=== PATIENT | female | born 1980 | race Caucasian/White ===

== ENCOUNTER 2024-07-29 06:55 | Emergency (ER) | payer SELFPAY ==
[2024-07-29 07:00] VITALS: BP 110/69; PULSE 62; RESP 16; TEMP 37.6; O2SAT 100; BMI 22.1
--- NOTE | 2024-07-29 07:24 | ED_ITS ---
HPI - General Adult General Chief complaint: Unspecified Complaint, Adult Stated complaint: Possible cerebral fluid leaking Time Seen by Provider: 07/29/24 07:11 History of Present Illness HPI narrative: Patient is a 43-year-old woman who presents with normal vital signs and the complaint that for several days she has had significant clear drainage from her nose. Patient is concerned that that liquid is CSF. Patient has had no recent head traumas. She has had no spinal headache. She has had no change in her vision or hearing. She has had no nausea no vomiting. The clear nasal discharge is paroxysmal. 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 She feels fine this morning but called and discussed the case with the Ask a Nurse who recommended she come in for evaluation. Related Data Home Medications ?Medication ?Instructions ?Recorded ?Confirmed No Known Home Medications 07/29/24 07/29/24 Allergies Allergy/AdvReac Type Severity Reaction Status Date / Time codeine Allergy Mild Hives Verified 04/04/23 13:23 Penicillins Allergy Mild Hives Verified 04/04/23 13:23 Review of Systems Status of ROS: Reports: 10 or more systems reviewed and unremarkable except as noted in History and below Exam Narrative: Exam Narrative: EXAM GENERAL: Patient appears comfortable and well. EYES: No scleral icterus. ENT: Tympanic membranes and oropharynx normal. Nasal exam shows mild rhinitis. THYROID: no thyroid nodules or thyromegaly. LYMPH: No supraclavicular or cervical lymphadenopathy. SKIN: Visible skin seen during exam normal or with benign process only. EXT: No dependent lower extremity pedal edema. HEART: Regular rate and rhythm with no murmurs, rubs, or gallops. LUNGS: Clear to auscultation bilaterally with no crackles or wheezes. ABD: Soft, non tender, non distended. PSYCH: Good eye contact, speech is not pressured. Const: Vital Signs, click to edit/add: Vital Signs - 24 hr 07/29/24 07:00 Temperature 99.6 F Pulse Rate [Right Pulse Oximeter] 62 Respiratory Rate 16 Blood Pressure [Ri ght Upper Arm] 110/69 Pulse Oximetry 100 Oxygen Delivery Me thod Room Air Course Course ED Course: Patient seen and examined. Vital Signs Vital signs: Initial Vital Signs Temperature 99.6 F 07/29/24 07:00 Temperature Source Temporal Artery Scan 07/29/24 07:00 Pulse Rate 62 07/29/24 07:00 Respiratory Rate 16 07/29/24 07:00 Blood Pressure 110/69 07/29/24 07:00 Blood Pressure Mean 82 07/29/24 07:00 Blood Pressure Position Sitting 07/29/24 07:00 Pulse Oximetry 100 07/29/24 07:00 Oxygen Delivery Method Room Air 07/29/24 07:00 Vital Signs Temperature 99.6 F 07/29/24 07:00 Pulse Rate 62 07/29/24 07:00 Respiratory Rate 16 07/29/24 07:00 Blood Pressure 110/69 07/29/24 07:00 Pulse Oximetry 100 07/29/24 07:00 Oxygen Delivery Method Room Air 07/29/24 07:00 Temperature 99.6 F 07/29/24 07:00 Pulse Rate 62 07/29/24 07:00 Respiratory Rate 16 07/29/24 07:00 Blood Pressure 110/69 07/29/24 07:00 Pulse Oximetry 100 07/29/24 07:00 Oxygen Delivery Method Room Air 07/29/24 07:00 Medical Decision Making MDM Narrative Medical decision making narrative: Patient is a 43-year-old woman who comes in stating that her paroxysmal runny nose a of the last several days has in fact been cerebral spinal fluid. I did do a careful exam an IC rhinitis but no other findings. We did discuss the fact that you would need violation of the meninges to access cerebral spinal fluid. She after much discussion agrees this is unlikely. Patient has no findings consistent with CSF leak. I did treat her symptomatic coulee with Tylenol Motrin Flonase antihistamines and primary care follow-up. Discharge Plan Discharge Clinical Impression: Rhinitis Patient Disposition: Home, Self-Care Condition: Stable Instructions: Postnasal Drip (DC) Additional Instructions: Consider Flonase as directed Consider Josy D Follow-up with your doctor as needed. Activity Level: No Restrictions Discharge Diet: Regular Prescriptions: No Action No Known Home Medications Follow Up/Referrals: Vonda Camarillo MD [Primary Care Provider] - Stand Alone Forms: [employer] Info Instructions
== END 2024-07-29 07:39 | disposition home or self-care (01) ==
LOC: ED 07:38
PROVIDERS: Emergency Provider Internal Medicine; PCP Family Medicine
DX: J31.0 Chronic rhinitis (principal)
CPT/HCPCS: 99282; 99283